=== PATIENT | female | born 1975 | race Caucasian/White ===

== ENCOUNTER 2025-01-21 11:25 | Emergency (ER) | payer OTHER, SELFPAY ==
[2025-01-21 11:34] VITALS: BP 142/90; PULSE 85; RESP 16; TEMP 36.7; O2SAT 99
--- NOTE | 2025-01-21 11:45 | CRLHL7_ITS ---
For Patients: As a result of the Cures Act, medical imaging exams and procedure reports are released immediately into your electronic medical record. You may view this report before your referring provider. If you have questions, please contact your health care provider. INDICATION: HEADACHE, FAMILY HX OF ANEURYSM COMPARISON: None TECHNIQUE: CT of the head without contrast. FINDINGS: Brain Parenchyma: No acute infarct, acute intracranial hemorrhage, mass effect, or midline shift. Focus of encephalomalacia in the right lateral frontal lobe, likely sequela of remote infarction. Ventricles: No hydrocephalus. Extra-axial Spaces: No abnormal fluid collection. Paranasal sinuses: No significant mucosal thickening. Likely bilateral mucous retention cysts in the maxillary sinuses. Orbits: Unremarkable Mastoid Sinuses: Unremarkable Cranium: No acute fracture Soft tissues: Unremarkable IMPRESSION: 1. No CT evidence of an acute intracranial process. 2. 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 Please note that all CT scans at this facility use dose modulation, iterative reconstruction, and/or weight-based dosing when appropriate to reduce radiation dose to as low as reasonably achievable. Dictated by Cain Patel MD @ 01/21/2025 12:34:27 PM (Electronically Signed)
--- NOTE | 2025-01-21 11:48 | ED.GENADULT ---
HPI - General Adult General Chief complaint: Headache/Migraine Stated complaint: Headache, slurred speech Time Seen by Provider: 01/21/25 11:30 History of Present Illness HPI narrative: Patient is a 42-year-old female has had a history of chronic migraines. She typically can catch the aura and take medication that will help her like ibuprofen. She often does not get a headache that follows the aura which can be a visual changes. 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 She has had imaging before. She seems to have recovered now she is speaking normally this was very brief and associated with her aura. She had no neck stiffness no thunderclap headache. In fact now she has really no headache but has had the or any or has passed. No focal neurologic deficit. She is concerned that she did not have this inability to use communicate with someone. Related Data Home Medications ?Medication ?Instructions ?Recorded ?Confirmed amoxicillin 875 mg-potassium 1 tab PO BID 01/21/25 01/21/25 clavulanate 125 mg tablet cetirizine 10 mg tablet (24Hour 10 mg PO DAILY 01/21/25 01/21/25 Allergy) fluconazole .ROUTE ONCE 01/21/25 Allergies Allergy/AdvReac Type Severity Reaction Status Date / Time clindamycin Allergy Rash Verified 01/21/25 12:16 sumatriptan (From Imitrex) AdvReac Mild Rash Verified 01/21/25 12:16 Review of Systems Status of ROS: Reports: 6 or more systems reviewed and unremarkable except as noted in History and below Exam Narrative: Exam Narrative: Objective: Patient's vital signs look within normal limits Alert or x3 No facial asymmetry, pupils aggression light extraocular moves intact Neck is supple Upper lower extremities show normal strength sensation. Const: Vital Signs, click to edit/add: Vital Signs - 24 hr 01/21/25 11:34 Temperature 98.1 F Pulse Rate [Pulse Oximeter] 85 Respiratory Rate 16 Blood Pressure [Ri ght Upper Arm] 142/90 H Pulse Oximetry 99 Oxygen Delivery Me thod Room Air Course Vital Signs Vital signs: Initial Vital Signs Temperature 98.1 F 01/21/25 11:34 Temperature Source Temporal Artery Scan 01/21/25 11:34 Pulse Rate 85 01/21/25 11:34 Respiratory Rate 16 01/21/25 11:34 Blood Pressure 142/90 H 01/21/25 11:34 Blood Pressure Mean 107 H 01/21/25 11:34 Blood Pressure Position Sitting 01/21/25 11:34 Pulse Oximetry 99 01/21/25 11:34 Oxygen Delivery Method Room Air 01/21/25 11:34 Vital Signs Temperature 98.1 F 01/21/25 11:34 Pulse Rate 85 01/21/25 11:34 Respiratory Rate 16 01/21/25 11:34 Blood Pressure 142/90 H 01/21/25 11:34 Pulse Oximetry 99 01/21/25 11:34 Oxygen Delivery Method Room Air 01/21/25 11:34 Temperature 98.1 F 01/21/25 11:34 Pulse Rate 85 01/21/25 11:34 Respiratory Rate 16 01/21/25 11:34 Blood Pressure 142/90 H 01/21/25 11:34 Pulse Oximetry 99 01/21/25 11:34 Oxygen Delivery Method Room Air 01/21/25 11:34 Medications Administered Medications: Discontinued Medications Generic Name Dose Route Start Last Admin Trade Name Freq PRN Reason Stop Dose Admin Diphenhydramine HCl 25 mg 01/21/25 11:45 01/21/25 12:32 Diphenhydramine 50 Mg/Ml Inj IVP 01/21/25 11:46 25 mg ONCE ONE Administration Sodium Chloride 1,000 mls @ 6,000 mls/hr 01/21/25 11:45 01/21/25 12:30 0.9 % Sodium Chloride 1000 Ml IV 01/21/25 11:54 6,000 mls/hr .Q10M DIEGO Administration Metoclopramide HCl 10 mg/ 102 mls @ 306 mls/hr 01/21/25 11:45 01/21/25 12:34 Sodium Chloride IV 01/21/25 11:46 306 mls/hr ONCE ONE Administration Ketorolac Tromethamine 15 mg 01/21/25 11:45 01/21/25 12:30 Ketorolac 30 Mg/Ml Inj IVP 01/21/25 11:46 15 mg ONCE ONE Administration Medical Decision Making MDM Narrative Medical decision making narrative: Because of the patient's unusual presentation today she had a CT scan done of her head that showed some mild frontal encephalomalacia but no acute stroke no acute findings. CBC looks largely unremarkable. It appears that this is more of an aura from migraine and will give her IV fluid Toradol Reglan and Benadryl. Will need a ride home. Monitoring carefully. She has improved in the ER stay and feels comfortable going home. Recommend continue home medications, return as needed. Lab Data Labs: Lab Results 01/21/25 Range/Units 11:46 WBC 5.03 (4.50-11.00) K/uL RBC 4.44 (4.00-5.20) m/uL Hgb 14.3 (12.0-16.0) gm/dL Hct 43.1 (33.0-51.0) % MCV 97 (80-100) fL MCH 32 (26-34) pg MCHC 33 (32-36) gm/dL RDW Coeff of [place] 13.1 (11.5-15.5) % Plt Count 164 (140-440) K/uL Neut % (Auto) 55.1 (42.0-72.0) % Lymph % (Auto) 31.8 (20-44) % [place] % (Auto) 9.3 (0.0-11.0) % Eos % (Auto) 3.4 (0.0-7.0) % Baso % (Auto) 0.4 (0.0-3.0) % Neut # (Auto) 2.77 (1.7-7.0) K/uL Lymph # (Auto) 1.60 (0.90-2.90) K/uL [place] # (Auto) 0.50 (0.00-0.90) K/UL Eos # (Auto) 0.17 (0.00-0.50) K/uL Baso # (Auto) 0.02 (0.00-0.30) K/uL Abs Immat Gran (auto) 0.00 (0.00-0.30) K/uL Imm/Tot Granulo (auto) 0.0 % Discharge Plan Discharge Clinical Impression: Migraine Patient Disposition: Home w/ Parent or Adult Condition: Improved Additional Instructions: Continue home meds, rest, fluids, follow-up with primary care in the next week or so for recheck. Activity Level: Light activity Discharge Diet: Regular Prescriptions: No Action cetirizine [24Hour Allergy] 10 mg tablet 10 mg PO DAILY amoxicillin-pot clavulanate 875-125 mg tablet 1 tab PO BID fluconazole [Diflucan] .ROUTE ONCE Rx Instructions: Yeast infxn Follow Up/Referrals: Provider,Not a Local [Primary Care Provider, Family Practice] Stand Alone Forms: [facility] Info Instructions
[2025-01-21 12:13] LABS: Hematocrit 43.1 % (33.0-51.0); Hemoglobin* 14.3 gm/dL (12.0-16.0); Immature Granulocytes Abs Auto 0.00 K/uL (0.00-0.30); Immature Granulocytes Pct Auto 0.0 %; Lymphocytes Absolute Auto 1.60 K/uL (0.90-2.90); Mean Corpuscular HGB Conc 33 gm/dL (32-36); Mean Corpuscular Hemoglobin 32 pg (26-34); Mean Corpuscular Volume 97 fL (80-100); RDW Coefficient of Variation % 13.1 % (11.5-15.5); Red Blood Count 4.44 m/uL (4.00-5.20); White Blood Count* 5.03 K/uL (4.50-11.00)
[2025-01-21 12:14] LABS: Slide Review Reflex No
[2025-01-21] MEDS: METOCLOPRAMIDE HCL 10 MG in 0.9 % SODIUM CHLORIDE 100 ml 100 ML 306 MG IV (12:34)
== END 2025-01-21 13:25 | disposition home or self-care (01) ==
PROVIDERS: Emergency Provider Family Medicine
DX: G43.909 Migraine, unspecified, not intractable, without status migrainosus (principal)
CPT/HCPCS: 36415; 70450; 85025; 96374; 96375; 99284; J1200; J1885; J2765; J7030